=== PATIENT | female | born 1970 | race Caucasian/White ===

== ENCOUNTER → 2018-04-19 | Outpatient (CLI) | payer OTHER ==
[~2018-04-19] MED LIST: IBU800 PO; PER PO
--- NOTE | 2018-04-20 09:18 | RADIOLOGY IMAGING REPORT ---
FACILITY: [facility] PATIENT NAME: CHAPIS NEFF : [id number] MR: [id number] V: [id number] EXAM DATE: ORDERING PHYSICIAN: WENDI BEE TECHNOLOGIST: Renetta Luna PROCEDURE:BILATERAL DIGITAL SCREENING MAMMOGRAM WITH CAD ASSISTED INTERPRETATION & 3D TOMOSYNTHESIS COMPARISON:Prior mammograms 03/31/17, 02/20/16, 02/15/15, 12/07/13, 11/10/11. INDICATIONS:SCREENING FINDINGS: Moderately dense fibroglandular tissue is seen throughout the breasts. The parenchymal pattern has remained stable allowing for difference in mammographic technique & patient positioning. There is no evidence of malignant appearing mass, malignant appearing calcifications or other secondary sign of malignancy in either breast. DIAGNOSTIC CATEGORY 1--NEGATIVE. RECOMMENDATIONS: ROUTINE MAMMOGRAM AND CLINICAL EVALUATION. IMPRESSION: BIRADS 1: Negative. No significant abnormality is seen. Dictated by: Helen Vallejo M.D. on 04/19/2018 at 17:03 Transcribed by: RALPH on 04/20/2018 at 7:54 Approved by: Helen Vallejo M.D. on 04/20/2018 at 9:17 [facility]
== END ==
LOC: MAMO 01:04
PROVIDERS: ATTEND Nurse Practitioner
DX: Z12.31 Encounter for screening mammogram for malignant neoplasm of breast (principal)
CPT/HCPCS: 77063; 77067